=== PATIENT | female | born 1950 | race American Indian/Alaskan Native ===

== ENCOUNTER 2021-05-04 18:22 | Observation (INO) | payer MEDICARE ==
[2021-05-04] MEDS ORDERED: ASPIRIN 325 MG TAB PO ONE ×2 (19:16→23:25)
--- NOTE | 2021-05-04 19:21 | Event Note ---
ED Screening Note ED Screening Note: Patient is a 70-year-old female presents emergency room with complaints of right-sided chest pain that began 2 days ago She describes the pain as a aching She denies any radiation of the pain She has associated nausea She denies any fever, vomiting, cough, shortness of breath, leg swelling, diaphoresis She is a former smoker and quit 10 years ago Past medical history of hypertension, hyperlipidemia, diabetes, arthritis, asthma, COPD No allergies to medicines She states that she may also possibly have a spider bite to the left foot This initial assessment/diagnostic orders/clinical plan/treatment(s) is/are subject to change based on patients health status, clinical progression and re- assessment by fellow clinical providers in the ED. Further treatment and workup at subsequent clinical providers discretion. Patient/guardian urged not to elope from the ED as their condition may be serious if not clinically assessed and managed. Initial orders include: Chest pain protocol ordered by triage
[2021-05-04 19:42] LABS: Basophils # (Auto) 0.1 K/mm3 (0.0-0.1); Basophils % (Auto) 0.8 % (0.0-1.8); Eosinophils # (Auto) 0.3 K/mm3 (0.0-0.4); Eosinophils % (Auto) 4.1 % (0.0-4.3); Hematocrit 43.3 % (30.3-42.9); Hemoglobin 14.8 gm/dl (10.1-14.3); Lymphocytes # (Auto) 3.4 K/mm3 (1.2-5.4); Lymphocytes % (Auto) 43.1 % (13.4-35.0); Mean Corpuscular HGB Conc 34 % (30-34); Mean Corpuscular Volume 90 fl (79-97); Monocytes # (Auto) 0.6 K/mm3 (0.0-0.8); Monocytes % (Auto) 8.2 % (0.0-7.3); Platelet Count 183 K/mm3 (140-440); Red Blood Count 4.82 M/mm3 (3.65-5.03); Red Cell Distribution Width 14.9 % (13.2-15.2)
--- NOTE | 2021-05-04 19:54 | XRay Report ---
XR chest routine 2V INDICATION / CLINICAL INFORMATION: chest pain. COMPARISON: None available. FINDINGS: SUPPORT DEVICES: None. HEART /PULMONARY VASCULATURE: No significant abnormality. LUNGS / PLEURA: No significant pulmonary or pleural abnormality. No pneumothorax. ADDITIONAL FINDINGS: No significant additional findings. IMPRESSION: 1. No acute findings. Signer Name: Terrance Chen MD Signed: 05/04/2021 7:50 PM Workstation Name: [id number]
[2021-05-04 20:05] LABS: Alanine Aminotransferase 30 units/L (7-56); Albumin 4.6 g/dL (3.9-5); BUN/Creatinine Ratio 10; Blood Urea Nitrogen 8 mg/dL (7-17); Calcium 10.2 mg/dL (8.4-10.2); Hemolysis Index 14
[2021-05-04] MEDS ORDERED: ONDANSETRON 4 MG/2 ML INJ IV ONE (21:11)
[2021-05-04] MEDS ORDERED: MORPHINE 4 MG/1 ML INJ IV ONE (21:11)
[2021-05-04] MEDS ORDERED: SULFAMETHOXAZOLE/TRIMETHOPRIM 800/160MG DS TAB PO ONE (21:12)
--- NOTE | 2021-05-04 21:16 | Emergency Department Report ---
ED Chest Pain HPI - General Chief Complaint: Chest Pain Stated Complaint: CHEST PAIN, INSECT BITE LEFT FOOT Time Seen by Provider: 05/04/21 19:19 Source: patient Mode of arrival: Ambulatory Limitations: No Limitations - History of Present Illness Initial Comments: This is a 70-year-old -[place] female presents to the emergency department with 2 complaints. First, the patient has been having some midsternal to right-sided chest pain that has been going on intermittently since last night. No known aggravating or alleviating factors. Currently her pain is a sharp pain and is 6 out of 10 in intensity. It is associated with some nausea without vomiting and occasionally some mild shortness of breath. Secondly, the patient complains of an infection or possible insect bite to the left foot. She did not see anything bite or sting her but she has been having the symptoms for 3 days and this also worsened since yesterday. The pain is towards the first and second toe of the left foot and radiates down to the ball of her foot and underneath her toes. She has a past medical history of asthma, COPD not O2 dependent, hypertension, high cholesterol, diet-controlled diabetes, GERD. She is a former smoker but quit 10 years ago. Denies any illicit drug use. No recent travel or sick contacts at home. Her primary care physician is a Dr. Hwang, but she does not have a park attendant. - Related Data Home Medications Medication Instructions Recorded Confirmed Last Taken Fluticasone Propionate [Flovent 2 inhalation INHALATION DAILY 06/06/14 12/07/15 11/24/15 110 MCG/PUFF HFA] Aspirin EC [Ecotrin] 325 mg PO DAILY 11/20/15 12/14/15 1 Week Ago ~12/07/15 325 mg Loratadine (Nf) [Claritin (Nf)] 10 mg PO DAILY 11/30/15 12/07/15 Unknown Allergies Allergy/AdvReac Type Severity Reaction Status Date / Time No Known Allergies Allergy Verified 11/22/15 10:15 Heart Score - HEART Score History: Slightly suspicious EKG: Non-specific Age: > 65 Risk factors: > 3 risk factors or hx of atherosclerotic disease Troponin: < normal limit HEART Score: 5 - EKG Read Time Time EKG Completed: 19:20 EKG Read Time: 19:27 - Critical Actions Critical Actions: 4-6 pts:12-16.6% risk of adverse cardiac event. Should be admitted ED Review of Systems ROS: Stated complaint: CHEST PAIN, INSECT BITE LEFT FOOT Other details as noted in HPI Comment: All other systems reviewed and negative Constitutional: denies: chills, fever Eyes: denies: eye pain, vision change ENT: denies: ear pain, throat pain Respiratory: cough, shortness of breath (Intermittent) Cardiovascular: chest pain. denies: palpitations, edema Gastrointestinal: denies: abdominal pain, vomiting Genitourinary: denies: dysuria, discharge Musculoskeletal: arthralgia (Left foot). denies: back pain Skin: change in color (Erythema and warmth to the left foot). denies: rash Neurological: denies: numbness, paresthesias ED Past Medical Hx - Past Medical History Previous Medical History?: Yes Hx Hypertension: Yes Hx Diabetes: Yes (DIET CONTROLLED) Hx GERD: Yes Hx Liver Disease: Yes (hemangioma of the liver) Hx Arthritis: Yes Hx Asthma: Yes Hx COPD: Yes Hx HIV: No Additional medical history: chronic back painHIGH CHOLESTEROL - Surgical History Past Surgical History?: Yes Additional Surgical History: right thumb surgery, RIGHT FOOT SURGERY - Social History Smoking Status: Former Smoker Substance Use Type: None - Medications Home Medications: Home Medications Medication Instructions Recorded Confirmed Last Taken Type Fluticasone Propionate [Flovent 2 inhalation INHALATION DAILY 06/06/14 12/07/15 11/24/15 History 110 MCG/PUFF HFA] Aspirin EC [Ecotrin] 325 mg PO DAILY 11/20/15 12/14/15 1 Week Ago History ~12/07/15 325 mg Loratadine (Nf) [Claritin (Nf)] 10 mg PO DAILY 11/30/15 12/07/15 Unknown History ED Physical Exam - General Limitations: No Limitations - Other Other exam information: GENERAL: The patient is well-developed well-nourished. HENT: Normocephalic. Atraumatic. Patient has moist mucous membranes. EYES: Extraocular motions are intact. NECK: Supple. Trachea is midline. CHEST/LUNGS: Clear to auscultation. There is no respiratory distress noted. Chest pain is not reproducible to palpation of the chest wall. HEART/CARDIOVASCULAR: Regular. There is no tachycardia. There is no murmur. ABDOMEN: Abdomen is soft, nontender. Patient has normal bowel sounds. SKIN: Skin is warm and dry. There is some erythema and warmth to the distal dorsal left foot, between toes 1 and 2. No fluctuance, lesions. NEURO: The patient is awake, alert, and oriented. The patient is cooperative. The patient has no focal neurologic deficits. Normal speech. MUSCULOSKELETAL: There is some tenderness to palpation of the distal dorsal left foot, about toes 1 and 2, where the patient has a cellulitis. +2/4 dorsalis pedis pulse to the affected left foot. No limitation to range of motion to any extremities. ED Course Vital Signs 05/04/21 19:13 Temperature 98.6 F Pulse Rate 109 H Respiratory 20 Rate Blood Pressure 124/81 O2 Sat by Pulse 97 Oximetry LETICIA score - Leticia Score Age > 65: (1) Yes Aspirin use within the Past 7 Days: (0) No 3 or more CAD Risk Factors: (1) Yes 2 or more Angina events in past 24 hrs: (1) Yes Known CAD with more than 50% Stenosis: (0) No Elevated Cardiac Markers: (0) No ST Deviation Greater than 0.5mm: (0) No LETICIA Score: 3 ED Medical Decision Making - Lab Data Result diagrams: 05/04/21 19:25 05/04/21 19:25 Lab Results 05/04/21 05/04/21 Range/Units 19:25 19:25 WBC 7.8 (4.5-11.0) K/mm3 RBC 4.82 (3.65-5.03) M/mm3 Hgb 14.8 H (10.1-14.3) gm/dl Hct 43.3 H (30.3-42.9) % MCV 90 (79-97) fl MCH 31 (28-32) pg MCHC 34 (30-34) % RDW 14.9 (13.2-15.2) % Plt Count 183 (140-440) K/mm3 Lymph % (Auto) 43.1 H (13.4-35.0) % [place] % (Auto) 8.2 H (0.0-7.3) % Eos % (Auto) 4.1 (0.0-4.3) % Baso % (Auto) 0.8 (0.0-1.8) % Lymph # (Auto) 3.4 (1.2-5.4) K/mm3 [place] # (Auto) 0.6 (0.0-0.8) K/mm3 Eos # (Auto) 0.3 (0.0-0.4) K/mm3 Baso # (Auto) 0.1 (0.0-0.1) K/mm3 Seg Neutrophils % 43.8 (40.0-70.0) % Seg Neutrophils # 3.4 (1.8-7.7) K/mm3 Sodium 141 (137-145) mmol/L Potassium 3.5 L (3.6-5.0) mmol/L Chloride 103.7 (98-107) mmol/L Carbon Dioxide 26 (22-30) mmol/L Anion Gap 15 mmol/L BUN 8 (7-17) mg/dL Creatinine 0.8 (0.6-1.2) mg/dL Estimated GFR > 60 ml/min BUN/Creatinine Ratio 10 % Glucose 85 (65-100) mg/dL Calcium 10.2 (8.4-10.2) mg/dL Total Bilirubin 0.20 (0.1-1.2) mg/dL AST 21 (5-40) units/L ALT 30 (7-56) units/L Alkaline Phosphatase 97 (35-129) units/L Troponin T < 0.010 (0.00-0.029) ng/mL Total Protein 7.9 (6.3-8.2) g/dL Albumin 4.6 (3.9-5) g/dL Albumin/Globulin Ratio 1.4 % - EKG Data -: EKG Interpreted by Me EKG shows normal: sinus rhythm, axis (Left axis deviation), intervals, QRS complexes (Q waves to the anteroseptal leads, LVH, left anterior fascicular block), ST-T waves Rate: tachycardia (101 bpm) - EKG Data When compared to previous EKG there are: no significant change Interpretation: unchanged when compared t (11/20/15) - Radiology Data Radiology results: image reviewed interpreted by me: Chest x-ray does not show any acute process. There are no pleural effusions, obvious pneumonia and there is no pneumothorax. - Medical Decision Making This patient presents with midsternal to right-sided chest pain since last night. EKG does not have any morphology consistent ST elevation myocardial infarction. Chest x-ray does not show any pneumonia, pleural effusions, pneumothorax, widened mediastinum, or any other acute process. Labs thus far have been mostly unremarkable including CBC, metabolic panel and a negative troponin. However, the patient is a moderate heart and LETICIA score given her risk factors including age, hypertension, high cholesterol, diabetes. It appears that it has been many years since the patient last had a stress test or full cardiac work-up. For this reason she will be admitted to the hospital for further evaluation and treatment was accepted for admission by the hospitalist. Patient also has a mild left foot cellulitis for which she has been started on Bactrim. No leukocytosis. Patient is afebrile. Critical Care Time: No Critical care attestation.: If time is entered above; I have spent that time in minutes in the direct care of this critically ill patient, excluding procedure time. ED Disposition Clinical Impression: Cellulitis of left foot, Acute chest pain, Chest pain, rule out acute myocardial infarction Disposition: OP ADMIT IP TO THIS HOSP Is pt being admited?: Yes Condition: Fair Instructions: Chest Pain (ED) Time of Disposition: 22:06
[2021-05-04] MEDS ORDERED: traMADol 50 MG TAB PO PRN (22:16)
[2021-05-04] MEDS ORDERED: DEXTROSE 50% IN WATER (25GM) 50 ML SYRINGE IV PRN (22:16)
[2021-05-04] MEDS ORDERED: ONDANSETRON 4 MG/2 ML INJ IV PRN (22:16)
[2021-05-04] MEDS ORDERED: ALBUTEROL 2.5 MG/3 ML NEBU IH PRN (22:16)
[2021-05-04] MEDS ORDERED: ACETAMINOPHEN 325 MG TAB PO PRN (22:16)
[2021-05-04] MEDS ORDERED: NITROGLYCERIN 0.4 MG TAB SUBL SL PRN (22:16)
[2021-05-04] MEDS ORDERED: MORPHINE 4 MG/1 ML INJ IV PRN (22:16)
[2021-05-04] MEDS ORDERED: POTASSIUM CHLORIDE ER 20 MEQ TAB PO ONE (22:44)
--- NOTE | 2021-05-04 22:51 | History and Physical Report ---
History of Present Illness Date of examination: 05/04/21 Date of admission: 05/04/2021 Chief complaint: CP, left great and second toe redness and pain History of present illness: 70 y.o -Citizen Of [place] female who is a former smoker (quit 10 years ago) with history of hypertension, COPD/asthma, anxiety, GERD, DM 2, HLD, and chronic back pain who complains of chest pain and redness and warmth to left great and second toe. Patient complains of right-sided/midsternal 6/10 sharp chest pain x1 day. The pain was unprovoked, on relieved with rest. Endorses mild dyspnea with exertion and nausea, but denies emesis, and diaphoresis. Additionally patient complains of left foot pain. Patient thinks that she was bit or stung by an insect approximately 3 days ago and now has an area of erythema and warmth to her left great and second toe. She rates her foot pain as 5/10 with radiation down to the ball of her foot. She denies taking anything for relief. Denies recent tobacco use, fever, headache, sore throat, cough, sputum production, burning in back of throat, heartburn, illicit drug use, abdominal pain, melena, constipation, diarrhea, recent fall/injury, recent sick contacts. Review of medical record shows patient was last seen at [facility] in 2015 for routine colonoscopy. Past History Past Medical History: COPD (/Asthma), diabetes, GERD, hypertension, hyperlipidemia, other (anxiety, former smoker (quit 10yrs ago), hemangioma of liver, chronic back pain) Past Surgical History: Other (right thumb surgery, right foot surgery ) Social history: single, lives with family (grandchildren lives with ), full code. denies: smoking, alcohol abuse, IV drug use Family history: hypertension Medications and Allergies Allergies Allergy/AdvReac Type Severity Reaction Status Date / Time No Known Allergies Allergy Verified 11/22/15 10:15 Home Medications Medication Instructions Recorded Confirmed Last Taken Type Fluticasone Propionate [Flovent 2 inhalation INHALATION DAILY 06/06/14 12/07/15 11/24/15 History 110 MCG/PUFF HFA] Aspirin EC [Ecotrin] 325 mg PO DAILY 11/20/15 12/14/15 1 Week Ago History ~12/07/15 325 mg Loratadine (Nf) [Claritin (Nf)] 10 mg PO DAILY 11/30/15 12/07/15 Unknown History Active Meds: Active Medications Acetaminophen (Acetaminophen 325 Mg Tab) 650 mg PO Q4H PRN PRN Reason: Pain MILD(1-3)/Fever >100.5/FISHER Albuterol (Albuterol 2.5 Mg/3 Ml Nebu) 2.5 mg IH Q3HRT PRN PRN Reason: Shortness Of Breath Aspirin (Aspirin Ec 325 Mg Tab) 325 mg PO QDAY [facility] Atorvastatin Calcium (Atorvastatin 40 Mg Tab) 40 mg PO QHS [facility] Bisacodyl (Bisacodyl 10 Mg Rect Supp) 10 mg MO QDAY PRN PRN Reason: Constipation unrelieved by MOM Dextrose (Dextrose 50% In Water (25gm) 50 Ml Syringe) 50 ml IV Q30MIN PRN; Protocol PRN Reason: Hypoglycemia Docusate Sodium (Docusate Sodium 100 Mg Cap) 100 mg PO BID [facility] Heparin Sodium (Porcine) (Heparin 5,000 Unit/1 Ml Vial) 5,000 unit SUB-Q Q12HR [facility] Ampicillin Sodium/Sulbactam Sodium (Unasyn/Ns 1.5 Gm/50 Ml) 1.5 gm in 50 mls @ 100 mls/hr IV Q8H [facility]; Protocol Insulin Human Lispro (Insulin Lispro 100 Unit/Ml) 0 unit SUB-Q Q6HR [facility]; Protocol Morphine Sulfate (Morphine 4 Mg/1 Ml Inj) 2 mg IV Q5MIN PRN PRN Reason: Chest Pain Nitroglycerin (Nitroglycerin 0.4 Mg Tab Subl) 0.4 mg SL Q5M PRN PRN Reason: Chest Pain Ondansetron HCl (Ondansetron 4 Mg/2 Ml Inj) 4 mg IV Q6H PRN PRN Reason: Nausea And Vomiting Pantoprazole Sodium (Pantoprazole 40 Mg Inj) 40 mg IV BID [facility] Potassium Chloride (Potassium Chloride Er 20 Meq Tab) 20 meq PO ONCE ONE Stop: 05/04/21 22:45 Sodium Chloride (Sodium Chloride 0.9% 10 Ml Flush Syringe) 10 ml IV BID [facility] Sodium Chloride (Sodium Chloride 0.9% 10 Ml Flush Syringe) 10 ml IV PRN PRN PRN Reason: LINE FLUSH Tramadol HCl (Tramadol 50 Mg Tab) 50 mg PO Q6H PRN PRN Reason: Pain, Moderate (4-6) Review of Systems All systems: negative (As noted in HPI) Exam - Physical Exam Narrative exam: Physical exam General appearance: Present: No acute distress, alert and oriented 3, well- developed, older adult female - EENT Eyes: Present: PERRL, EOM intact ENT: hearing intact, normal dentition - Neck Neck: Present: supple, normal ROM - Respiratory Respiratory effort: Non-labored Respiratory: Clear throughout - Cardiovascular Heart rate: 101 (bpm) Rhythm: Sinus tachycardia Heart Sounds: Present: S1 & S2. Absent: rub, click - Extremities Extremities: no ischemia, pulses intact, left great and second toe has quarter sized area of erythema and warmth with slight tenderness to touch - Peripheral Assessment Peripheral Pulses: within normal limits - Abdominal General gastrointestinal: soft, non-tender, normal bowel sounds - Integumentary Integumentary: Present: warm, dry - Musculoskeletal Musculoskeletal: Able to move all extremities -Neurological Neurological: CN II-XII intact - Psychiatric Psychiatric: cooperative - Constitutional Vitals: Temp Pulse Resp BP Pulse Ox 98.6 F 109 H 20 124/81 97 05/04/21 19:13 05/04/21 19:13 05/04/21 19:13 05/04/21 19:13 05/04/21 19:13 HEART Score - HEART Score EKG: Non-specific Age: > 65 Risk factors: > 3 risk factors or hx of atherosclerotic disease Troponin: Troponin T < 0.010 ng/mL (0.00-0.029) 05/04/21 19:25 Troponin: < normal limit - Critical Actions Critical Actions: 4-6 pts:12-16.6% risk of adverse cardiac event. Should be admitted Results - Labs CBC & Chem 7: 05/04/21 19:25 05/04/21 19:25 Labs: Laboratory Last Values WBC 7.8 K/mm3 (4.5-11.0) 05/04/21 19:25 RBC 4.82 M/mm3 (3.65-5.03) 05/04/21 19:25 Hgb 14.8 gm/dl (10.1-14.3) H 05/04/21 19:25 Hct 43.3 % (30.3-42.9) H 05/04/21 19:25 MCV 90 fl (79-97) 05/04/21 19:25 MCH 31 pg (28-32) 05/04/21 19:25 MCHC 34 % (30-34) 05/04/21 19:25 RDW 14.9 % (13.2-15.2) 05/04/21 19:25 Plt Count 183 K/mm3 (140-440) 05/04/21 19:25 Lymph % (Auto) 43.1 % (13.4-35.0) H 05/04/21 19:25 [place] % (Auto) 8.2 % (0.0-7.3) H 05/04/21 19:25 Eos % (Auto) 4.1 % (0.0-4.3) 05/04/21 19:25 Baso % (Auto) 0.8 % (0.0-1.8) 05/04/21 19:25 Lymph # (Auto) 3.4 K/mm3 (1.2-5.4) 05/04/21 19:25 [place] # (Auto) 0.6 K/mm3 (0.0-0.8) 05/04/21 19:25 Eos # (Auto) 0.3 K/mm3 (0.0-0.4) 05/04/21 19:25 Baso # (Auto) 0.1 K/mm3 (0.0-0.1) 05/04/21 19:25 Seg Neutrophils % 43.8 % (40.0-70.0) 05/04/21 19:25 Seg Neutrophils # 3.4 K/mm3 (1.8-7.7) 05/04/21 19:25 Sodium 141 mmol/L (137-145) 05/04/21 19:25 Potassium 3.5 mmol/L (3.6-5.0) L 05/04/21 19:25 Chloride 103.7 mmol/L (98-107) 05/04/21 19:25 Carbon Dioxide 26 mmol/L (22-30) 05/04/21 19:25 Anion Gap 15 mmol/L 05/04/21 19:25 BUN 8 mg/dL (7-17) 05/04/21 19:25 Creatinine 0.8 mg/dL (0.6-1.2) 05/04/21 19:25 Estimated GFR > 60 ml/min 05/04/21 19:25 BUN/Creatinine Ratio 10 % 05/04/21 19:25 Glucose 85 mg/dL (65-100) 05/04/21 19:25 Calcium 10.2 mg/dL (8.4-10.2) 05/04/21 19:25 Total Bilirubin 0.20 mg/dL (0.1-1.2) 05/04/21 19:25 AST 21 units/L (5-40) 05/04/21:25 ALT 30 units/L (7-56) 05/04/21 19:25 Alkaline Phosphatase 97 units/L (35-129) 05/04/21 19:25 Troponin T < 0.010 ng/mL (0.00-0.029) 05/04/21:25 Total Protein 7.9 g/dL (6.3-8.2) 05/04/21 19:25 Albumin 4.6 g/dL (3.9-5) 05/04/21:25 Albumin/Globulin Ratio 1.4 % 05/04/21 19:25 - Imaging and Cardiology Chest x-ray: report reviewed (IMPRESSION: 1. No acute findings. ), image reviewed, other Assessment and Plan Assessment and plan: Acute Chest Pain -Complains of right-sided sharp 6/10 chest pain -?? GERD exacerbation -Initiate chest pain protocol -Continuous telemetry monitoring -Continue supportive care -Pain mgmt -Troponin negative x1 , will continue to trend -EKG unrevealing for acute ischemic abnormalities -Echo and Lexiscan's pending -on ASA and statin Left foot cellulitis -Left great and second toe quarter size area of erythema, warmth, slight tenderness to touch -Cultures pending -Monitor area -Monitor labs -Started on IV ABX Hypokalemia -Mild -Replace -Monitor electrolytes, and replace as needed HTN -Monitor BP -Resume home hypertensive meds once med rec has been updated Noninsulin-dependent diabetes mellitus -POC BG monitoring -SSI coverage prn -HgbA1C pending History HLD -On statin -Lipid panel pending History of tobacco use -Former smoker smoked 1/2 pack/day since age of 18, quit approximately 10 years ago History of COPD/asthma -Albuterol as needed History of GERD -Start on IV Protonix twice daily DVT PPX -On Heparin Advance Directives: No VTE prophylaxis?: Chemical, Mechanical Plan of care discussed with patient/family: Yes
[2021-05-04] MEDS: HYDROmorphone 1 MG/1 ML INJ IV PRN (23:10)
[2021-05-04 23:13] LABS: Chol/HDL Ratio 3.86 %
[2021-05-04] MEDS: PANTOPRAZOLE 40 MG INJ IV SCH (23:49)
[2021-05-04] MEDS: AMPICILLIN/SULBACTA 1.5GM/50ML 1.5 GM/50 ML BAG IV SCH (23:50)
[2021-05-05] MEDS: INSULIN LISPRO 100 UNIT/ML SUB-Q SCH ×4 (02:02→18:23)
[2021-05-05] MEDS: HYDROmorphone 1 MG/1 ML INJ IV PRN ×2 (02:42→22:29)
[2021-05-05 06:28] LABS: Basophils % (Auto) 0.5 % (0.0-1.8); Eosinophils # (Auto) 0.3 K/mm3 (0.0-0.4); Eosinophils % (Auto) 3.9 % (0.0-4.3); Hematocrit 38.7 % (30.3-42.9); Hemoglobin 12.9 gm/dl (10.1-14.3); Lymphocytes # (Auto) 3.3 K/mm3 (1.2-5.4); Mean Corpuscular HGB Conc 33 % (30-34); Mean Corpuscular Volume 91 fl (79-97); Monocytes # (Auto) 0.5 K/mm3 (0.0-0.8); Monocytes % (Auto) 7.7 % (0.0-7.3); Platelet Count 167 K/mm3 (140-440); Red Blood Count 4.26 M/mm3 (3.65-5.03)
[2021-05-05 06:48] LABS: Blood Urea Nitrogen 10 mg/dL (7-17); Calcium 9.7 mg/dL (8.4-10.2); Hemolysis Index 3
[2021-05-05 06:51] LABS: BUN/Creatinine Ratio 14
[2021-05-05] MEDS: SODIUM CHLORIDE 0.9% 1000 ML 1,000 ML IV SCH (06:52)
[2021-05-05] MEDS: AMPICILLIN/SULBACTA 1.5GM/50ML 1.5 GM/50 ML BAG IV SCH ×4 (07:00→23:35)
--- NOTE | 2021-05-05 10:10 | Consultation ---
History of Present Illness Consult date: 05/05/21 Requesting physician: EMILIANO MUELLER Consult reason: chest pain History of present illness: Patient is a 70-year-old who presented to the hospital with several nonspecific complaints. Primary complaint was pain in her foot. She subsequently also complained of some chest pain. Currently appears a little bit confused but reports she had no longer has any chest pain. She reports she is having headache and foot pain. She says her left foot has been hurting since she had an insect bite. Reports no fever chills or rigor. No recent travel or exposure to anyone with Covid. Her past medical history includes hypertension, COPD/asthma, anxiety, GERD, DM 2, HL. She has had a remote cath 2016 unfortunately she is unable to recount the findings. Past History Past Medical History: COPD (/Asthma), diabetes, GERD, hypertension, hyperlipidemia, other (anxiety, former smoker (quit 10yrs ago), hemangioma of liver, chronic back pain) Past Surgical History: Other (right thumb surgery, right foot surgery ) Social history: single, lives with family (grandchildren lives with ), full code. denies: smoking, alcohol abuse, IV drug use Family history: hypertension Medications and Allergies Allergies Allergy/AdvReac Type Severity Reaction Status Date / Time No Known Allergies Allergy Verified 11/22/15 10:15 Home Medications Medication Instructions Recorded Confirmed Last Taken Type Fluticasone Propionate [Flovent 2 inhalation INHALATION DAILY 06/06/14 05/05/21 11/24/15 History 110 MCG/PUFF HFA] Aspirin EC [Ecotrin] 325 mg PO DAILY 11/20/15 05/05/21 05/04/21 History Loratadine (Nf) [Claritin (Nf)] 10 mg PO DAILY 11/30/15 05/05/21 05/04/21 History Active Meds: Active Medications Acetaminophen (Acetaminophen 325 Mg Tab) 650 mg PO Q4H PRN PRN Reason: Pain MILD(1-3)/Fever >100.5/FISHER Albuterol (Albuterol 2.5 Mg/3 Ml Nebu) 2.5 mg IH Q3HRT PRN PRN Reason: Shortness Of Breath Aspirin (Aspirin Ec 325 Mg Tab) 325 mg PO QDAY CHARAN Atorvastatin Calcium (Atorvastatin 40 Mg Tab) 40 mg PO QHS CHARAN Bisacodyl (Bisacodyl 10 Mg Rect Supp) 10 mg MD QDAY PRN PRN Reason: Constipation unrelieved by MOM Dextrose (Dextrose 50% In Water (25gm) 50 Ml Syringe) 50 ml IV Q30MIN PRN; Protocol PRN Reason: Hypoglycemia Docusate Sodium (Docusate Sodium 100 Mg Cap) 100 mg PO BID CHARAN Heparin Sodium (Porcine) (Heparin 5,000 Unit/1 Ml Vial) 5,000 unit SUB-Q Q12HR CHARAN Hydromorphone HCl (Hydromorphone 1 Mg/1 Ml Inj) 0.5 mg IV Q3H PRN PRN Reason: Pain , Severe (7-10) Last Admin: 05/05/21 02:42 Dose: 0.5 mg Documented by: Ampicillin Sodium/Sulbactam Sodium (Unasyn/Ns 1.5 Gm/50 Ml) 1.5 gm in 50 mls @ 100 mls/hr IV Q8H [facility]; Protocol Last Admin: 05/04/21 23:50 Dose: 100 mls/hr Documented by: Sodium Chloride (Nacl 0.9% 1000 Ml) 1,000 mls @ 100 mls/hr IV DIRECT [facility] Last Admin: 05/05/21 06:52 Dose: 100 mls/hr Documented by: Insulin Human Lispro (Insulin Lispro 100 Unit/Ml) 0 unit SUB-Q Q6HR [facility]; Protocol Last Admin: 05/05/21 06:50 Dose: Not Given Documented by: Morphine Sulfate (Morphine 4 Mg/1 Ml Inj) 2 mg IV Q5MIN PRN PRN Reason: Chest Pain UNRELIEVED BY NTG Nitroglycerin (Nitroglycerin 0.4 Mg Tab Subl) 0.4 mg SL Q5M PRN PRN Reason: Chest Pain Ondansetron HCl (Ondansetron 4 Mg/2 Ml Inj) 4 mg IV Q6H PRN PRN Reason: Nausea And Vomiting Pantoprazole Sodium (Pantoprazole 40 Mg Inj) 40 mg IV BID [facility] Last Admin: 05/04/21 23:49 Dose: 40 mg Documented by: Sodium Chloride (Sodium Chloride 0.9% 10 Ml Flush Syringe) 10 ml IV BID CHARAN Sodium Chloride (Sodium Chloride 0.9% 10 Ml Flush Syringe) 10 ml IV PRN PRN PRN Reason: LINE FLUSH Tramadol HCl (Tramadol 50 Mg Tab) 50 mg PO Q6H PRN PRN Reason: Pain, Moderate (4-6) Review of Systems All systems: negative (As mentioned in the H&P) Physical Examination Vital Signs Temp Pulse Resp BP Pulse Ox 98.6 F 109 H 20 124/81 97 05/04/21 19:13 05/04/21 19:13 05/04/21 19:13 05/04/21 19:13 05/04/21 19:13 HEENT: Positive: Normocephaly Neck: Positive: trachea midline Cardiac: Positive: Reg Rate and Rhythm Lungs: Positive: clear to auscultation Neuro: Positive: Grossly Intact Abdomen: Positive: Unremarkable Extremities: Present: normal (She has bilateral Achilles 2+ dorsalis pedis and posterior tibial pulses.) Results 05/05/21 05:48 05/05/21 05:48 Cardiac Enzymes 05/04/21 Range/Units 19:25 AST 21 (5-40) units/L Lipids 05/04/21 Range/Units 22:39 Triglycerides 358 H (2-149) mg/dL Cholesterol 205 H (50-199) mg/dL HDL Cholesterol 53 (40-59) mg/dL Cholesterol/HDL Ratio 3.86 % CBC 05/04/21 05/05/21 Range/Units 19:25 05:48 WBC 7.8 7.1 (4.5-11.0) K/mm3 RBC 4.82 4.26 (3.65-5.03) M/mm3 Hgb 14.8 H 12.9 (10.1-14.3) gm/dl Hct 43.3 H 38.7 (30.3-42.9) % Plt Count 183 167 (140-440) K/mm3 Lymph # (Auto) 3.4 3.3 (1.2-5.4) K/mm3 [place] # (Auto) 0.6 0.5 (0.0-0.8) K/mm3 Eos # (Auto) 0.3 0.3 (0.0-0.4) K/mm3 Baso # (Auto) 0.1 0.0 (0.0-0.1) K/mm3 Comprehensive Metabolic Panel 05/04/21 05/05/21 Range/Units 19:25 05:48 Sodium 141 142 (137-145) mmol/L Potassium 3.5 L 4.0 (3.6-5.0) mmol/L Chloride 103.7 103.9 (98-107) mmol/L Carbon Dioxide 26 27 (22-30) mmol/L BUN 8 10 (7-17) mg/dL Creatinine 0.8 0.7 (0.6-1.2) mg/dL Glucose 85 84 (65-100) mg/dL Calcium 10.2 9.7 (8.4-10.2) mg/dL AST 21 (5-40) units/L ALT 30 (7-56) units/L Alkaline Phosphatase 97 (35-129) units/L Total Protein 7.9 (6.3-8.2) g/dL Albumin 4.6 (3.9-5) g/dL Assessment and Plan Impression 1. Atypical chest pain has since resolved 2. Hypertension fairly well controlled 3. Hyperlipidemia 4. COPD 5. Leg pain etiology unclear very good pulses distally 6. Mild confusion Plan 1. Obtain EKG 2. In view of the multiple risk factors consider stress test prior to DC 3. Rest per primary team
[2021-05-05] MEDS: PANTOPRAZOLE 40 MG INJ IV SCH ×2 (11:01→21:51)
[2021-05-05] MEDS: HEPARIN 5,000 UNIT/1 ML VIAL SUB-Q SCH ×2 (11:01→21:52)
[2021-05-05] MEDS: DOCUSATE SODIUM 100 MG CAP PO SCH ×2 (11:01→21:51)
[2021-05-05] MEDS: ASPIRIN EC 325 MG TAB PO SCH (11:01)
--- NOTE | 2021-05-05 12:09 | XRay Report ---
HISTORY:Swollen left big toe COMPARISON: None. TECHNIQUE: AP lateral and obliques views were obtained FINDINGS: Bones: No fracture or dislocation. Joint spaces: Maintained. Soft tissues: No significant abnormality. Additional findings: None. IMPRESSION: 1. No significant abnormality. Signer Name: Nba Alvarado MD Signed: 05/05/2021 12:04 PM Workstation Name: [id number]
--- NOTE | 2021-05-05 12:13 | Progress Note ---
Assessment and Plan Assessment and plan: Acute Chest Pain -Initiate chest pain protocol -Continuous telemetry monitoring -Continue supportive care -Pain mgmt -Troponin negative x1 , will continue to trend -EKG unrevealing for acute ischemic abnormalities -Echo and Lexiscan's pending -on ASA and statin Left foot cellulitis -Left great and second toe quarter size area of erythema, warmth, slight tenderness to touch -Cultures pending -Monitor area -Monitor labs -Started on IV ABX X ray foot done today, unremarkable Hypokalemia -Mild -Replace -Monitor electrolytes, and replace as needed HTN -Monitor BP -Resume home hypertensive meds once med rec has been updated Noninsulin-dependent diabetes mellitus -POC BG monitoring -SSI coverage prn History HLD -On statin - History of tobacco use -Former smoker smoked 1/2 pack/day since age of 18, quit approximately 10 years ago History of COPD/asthma -Albuterol as needed History of GERD -Start on IV Protonix twice daily DVT PPX -On Heparin 05/05/21 Patient presented with chest pain and pain, swelling and redness left 1st and 2nd toes. She was seen in ED and admitted. Started on Aspirin, iv Antibiotics. Patient evaluated by Cardiology. For stress test tomorrow. She had cardiac cath here in 2016. X ray foot unremarkable. Uric acid level done, pending. History Interval history: Chest pain Swollen,painful left big toe Hospitalist Physical - Physical exam Narrative exam: Gen: Not in acute distress, sitting up in chair HEENT: Normochephalic, atraumatic Neck:supple, No JVD Lungs:Clear to auscultation bilaterally, no rales, no wheeze Heart:S1 and S2 reg, no murmurs, rubs or gallop Abd: soft, non tender, non distended, normal bowel sounds Ext: Edema, erythema left 1st and 2nd toes, no cyanosis Neuro:Awake,alert,oriented X 3, moves all ext, no focal neurological signs - Constitutional Vitals: Temp Pulse Resp BP Pulse Ox 98.0 F 74 20 87/44 94 05/05/21 04:30 05/05/21 08:30 05/05/21 04:30 05/05/21 04:30 05/05/21 04:30 HEART Score - HEART Score EKG: Non-specific Age: > 65 Risk factors: > 3 risk factors or hx of atherosclerotic disease Troponin: Troponin T < 0.010 ng/mL (0.00-0.029) 05/05/21 01:07 Troponin: < normal limit - Critical Actions Critical Actions: 4-6 pts:12-16.6% risk of adverse cardiac event. Should be admitted Results - Labs CBC & Chem 7: 05/05/21 05:48 05/05/21 05:48 Labs: Laboratory Last Values WBC 7.1 K/mm3 (4.5-11.0) 05/05/21 05:48 RBC 4.26 M/mm3 (3.65-5.03) 05/05/21 05:48 Hgb 12.9 gm/dl (10.1-14.3) 05/05/21 05:48 Hct 38.7 % (30.3-42.9) 05/05/21 05:48 MCV 91 fl (79-97) 05/05/21 05:48 MCH 30 pg (28-32) 05/05/21 05:48 MCHC 33 % (30-34) 05/05/21 05:48 RDW 15.0 % (13.2-15.2) 05/05/21 05:48 Plt Count 167 K/mm3 (140-440) 05/05/21 05:48 Lymph % (Auto) 46.0 % (13.4-35.0) H 05/05/21 05:48 [place] % (Auto) 7.7 % (0.0-7.3) H 05/05/21 05:48 Eos % (Auto) 3.9 % (0.0-4.3) 05/05/21 05:48 Baso % (Auto) 0.5 % (0.0-1.8) 05/05/21 05:48 Lymph # (Auto) 3.3 K/mm3 (1.2-5.4) 05/05/21 05:48 [place] # (Auto) 0.5 K/mm3 (0.0-0.8) 05/05/21 05:48 Eos # (Auto) 0.3 K/mm3 (0.0-0.4) 05/05/21 05:48 Baso # (Auto) 0.0 K/mm3 (0.0-0.1) 05/05/21 05:48 Seg Neutrophils % 41.9 % (40.0-70.0) 05/05/21 05:48 Seg Neutrophils # 3.0 K/mm3 (1.8-7.7) 05/05/21 05:48 Sodium 142 mmol/L (137-145) 05/05/21 05:48 Potassium 4.0 mmol/L (3.6-5.0) 05/05/21 05:48 Chloride 103.9 mmol/L (98-107) 05/05/21 05:48 Carbon Dioxide 27 mmol/L (22-30) 05/05/21 05:48 Anion Gap 15 mmol/L 05/05/21 05:48 BUN 10 mg/dL (7-17) 05/05/21 05:48 Creatinine 0.7 mg/dL (0.6-1.2) 05/05/21 05:48 Estimated GFR > 60 ml/min 05/05/21 05:48 BUN/Creatinine Ratio 14 % 05/05/21 05:48 Glucose 84 mg/dL (65-100) 05/05/21 05:48 POC Glucose 86 mg/dL (70-105) 05/05/21 02:00 Hemoglobin A1c 5.8 % (4-6) 05/04/21 22:39 Calcium 9.7 mg/dL (8.4-10.2) 05/05/21 05:48 Total Bilirubin 0.20 mg/dL (0.1-1.2) 05/04/21 19:25 AST 21 units/L (5-40) 05/04/21 19:25 ALT 30 units/L (7-56) 05/04/21 19:25 Alkaline Phosphatase 97 units/L (35-129) 05/04/21 19:25 Troponin T < 0.010 ng/mL (0.00-0.029) 05/05/21 01:07 Total Protein 7.9 g/dL (6.3-8.2) 05/04/21 19:25 Albumin 4.6 g/dL (3.9-5) 05/04/21 19:25 Albumin/Globulin Ratio 1.4 % 05/04/21 19:25 Triglycerides 358 mg/dL (2-149) H 05/04/21 22:39 Cholesterol 205 mg/dL (50-199) H 05/04/21 22:39 LDL Cholesterol Direct 132 mg/dL (50-130) H 05/04/21 22:39 HDL Cholesterol 53 mg/dL (40-59) 05/04/21 22:39 Cholesterol/HDL Ratio 3.86 % 05/04/21 22:39 Microbiology: Microbiology 05/04/21 23:17 Peripheral/Venous Blood Culture - Preliminary Culture in Progress 05/04/21 22:39 Peripheral/Venous Blood Culture - Preliminary Culture in Progress Garcia/IV: Voiding Method Toilet Active Medications - Current Medications Current Medications: Generic Name Dose Route Start Last Admin Trade Name Freq PRN Reason Stop Dose Admin Acetaminophen 650 mg 05/04/21 22:16 Acetaminophen 325 Mg Tab PO Q4H PRN Pain MILD(1-3)/Fever >100.5/FISHER Albuterol 2.5 mg 05/04/21 22:16 Albuterol 2.5 Mg/3 Ml Nebu IH Q3HRT PRN Shortness Of Breath Aspirin 325 mg 05/05/21 10:00 05/05/21 11:01 Aspirin Ec 325 Mg Tab PO 325 mg QDAY CHARAN Administration Atorvastatin Calcium 40 mg 05/05/21 22:00 Atorvastatin 40 Mg Tab PO QHS CHARAN Bisacodyl 10 mg 05/04/21 22:16 Bisacodyl 10 Mg Rect Supp VT QDAY PRN Constipation unrelieved by MOM Dextrose 50 ml 05/04/21 22:16 Dextrose 50% In Water (25gm) 50 Ml Syringe IV Q30MIN PRN Hypoglycemia Protocol Docusate Sodium 100 mg 05/05/21 10:00 05/05/21 11:01 Docusate Sodium 100 Mg Cap PO 100 mg BID CHARAN Administration Heparin Sodium (Porcine) 5,000 unit 05/05/21 10:00 05/05/21 11:01 Heparin 5,000 Unit/1 Ml Vial SUB-Q 5,000 unit Q12HR CHARAN Administration Hydromorphone HCl 0.5 mg 05/04/21 22:56 05/05/21 02:42 Hydromorphone 1 Mg/1 Ml Inj IV 0.5 mg Q3H PRN Administration Pain , Severe (7-10) Ampicillin Sodium/Sulbactam Sodium 1.5 gm in 50 mls @ 100 mls/hr 05/04/21 23:00 05/04/21 23:50 Unasyn/Ns 1.5 Gm/50 Ml IV 100 mls/hr Q8H CHARAN Administration Protocol Sodium Chloride 1,000 mls @ 100 mls/hr 05/05/21 06:15 05/05/21 06:52 Nacl 0.9% 1000 Ml IV 100 mls/hr DIRECT CHARAN Administration Insulin Human Lispro 0 unit 05/05/21 00:00 05/05/21 06:50 Insulin Lispro 100 Unit/Ml SUB-Q Not Given Q6HR [facility] Protocol Morphine Sulfate 2 mg 05/04/21 22:16 Morphine 4 Mg/1 Ml Inj IV Q5MIN PRN Chest Pain UNRELIEVED BY NTG Nitroglycerin 0.4 mg 05/04/21 22:16 Nitroglycerin 0.4 Mg Tab Subl SL Q5M PRN Chest Pain Ondansetron HCl 4 mg 05/04/21 22:16 Ondansetron 4 Mg/2 Ml Inj IV Q6H PRN Nausea And Vomiting Pantoprazole Sodium 40 mg 05/04/21 23:00 05/05/21 11:01 Pantoprazole 40 Mg Inj IV 40 mg BID CHARAN Administration Sodium Chloride 10 ml 05/05/21 10:00 05/05/21 11:01 Sodium Chloride 0.9% 10 Ml Flush Syringe IV 10 ml BID CHARAN Administration Sodium Chloride 10 ml 05/04/21 22:16 Sodium Chloride 0.9% 10 Ml Flush Syringe IV PRN PRN LINE FLUSH Tramadol HCl 50 mg 05/04/21 22:16 05/05/21 11:01 Tramadol 50 Mg Tab PO 50 mg Q6H PRN Administration Pain, Moderate (4-6)
[2021-05-06] MEDS: INSULIN LISPRO 100 UNIT/ML SUB-Q SCH ×4 (00:31→18:02)
[2021-05-06] MEDS: HYDROmorphone 1 MG/1 ML INJ IV PRN (04:04)
[2021-05-06] MEDS: AMPICILLIN/SULBACTA 1.5GM/50ML 1.5 GM/50 ML BAG IV SCH ×3 (06:55→23:17)
[2021-05-06] MEDS ORDERED: REGADENOSON 0.4 MG/5 ML INJ IV ONE (07:03)
[2021-05-06] MEDS: ASPIRIN EC 325 MG TAB PO SCH (09:03)
[2021-05-06] MEDS: HEPARIN 5,000 UNIT/1 ML VIAL SUB-Q SCH ×2 (09:03→21:39)
[2021-05-06] MEDS: PANTOPRAZOLE 40 MG INJ IV SCH ×2 (09:03→21:39)
[2021-05-06] MEDS: DOCUSATE SODIUM 100 MG CAP PO SCH ×2 (09:03→21:39)
--- NOTE | 2021-05-06 09:35 | Progress Note ---
Assessment and Plan Assessment and plan: Acute Chest Pain -Initiate chest pain protocol -Continuous telemetry monitoring -EKG unrevealing for acute ischemic abnormalities -Echo and Lexiscan's pending -on ASA and statin Left foot cellulitis -Left great and second toe quarter size area of erythema, warmth, slight tenderness to touch -Cultures pending -Monitor area -Monitor labs -Cont. on IV ABX -X ray foot done, unremarkable Hypokalemia -Mild -Replaced -Monitor electrolytes, and replace as needed HTN -Monitor BP -Cont. home hypertensive meds Noninsulin-dependent diabetes mellitus -POC BG monitoring -SSI coverage prn History HLD -On statin History of tobacco use -Former smoker smoked 1/2 pack/day since age of 18, quit approximately 10 years ago History of COPD/asthma -Albuterol as needed History of GERD -Start on IV Protonix twice daily DVT PPX -On Heparin 05/05/21 Patient presented with chest pain and pain, swelling and redness left 1st and 2nd toes. She was seen in ED and admitted. Started on Aspirin, iv Antibiotics. Patient evaluated by Cardiology. For stress test tomorrow. She had cardiac cath here in 2015. X ray foot unremarkable. Uric acid level done, pending. 05/06/21. Await stress test results. Cont. abx for cellulitis. Anticipate d/c in am if stress negative and cellulitis cont. to improve. History Interval history: No new issues Hospitalist Physical - Constitutional Vitals: Temp Pulse Resp BP Pulse Ox 97.6 F 60 18 106/52 91 05/06/21 07:39 05/06/21 07:39 05/06/21 07:39 05/06/21 07:39 05/06/21 07:39 General appearance: Present: no acute distress, well-nourished - EENT Eyes: Present: PERRL, EOM intact ENT: hearing intact, clear oral mucosa, dentition normal - Neck Neck: Present: supple, normal ROM - Respiratory Respiratory effort: normal Respiratory: bilateral: CTA - Cardiovascular Rhythm: regular Heart Sounds: Present: S1 & S2. Absent: gallop, rub - Extremities Extremities: no ischemia, No edema, Full ROM - Abdominal General gastrointestinal: soft, non-tender, non-distended, normal bowel sounds - Integumentary Integumentary: Present: clear, warm, dry - Neurologic Neurologic: CNII-XII intact, moves all extremities HEART Score - HEART Score EKG: Non-specific Age: > 65 Risk factors: > 3 risk factors or hx of atherosclerotic disease Troponin: Troponin T < 0.010 ng/mL (0.00-0.029) 05/05/21 01:07 Troponin: < normal limit - Critical Actions Critical Actions: 4-6 pts:12-16.6% risk of adverse cardiac event. Should be admitted Results - Labs CBC & Chem 7: 05/05/21 05:48 05/05/21 05:48 Labs: Laboratory Last Values WBC 7.1 K/mm3 (4.5-11.0) 05/05/21 05:48 RBC 4.26 M/mm3 (3.65-5.03) 05/05/21 05:48 Hgb 12.9 gm/dl (10.1-14.3) 05/05/21 05:48 Hct 38.7 % (30.3-42.9) 05/05/21 05:48 MCV 91 fl (79-97) 05/05/21 05:48 MCH 30 pg (28-32) 05/05/21 05:48 MCHC 33 % (30-34) 05/05/21 05:48 RDW 15.0 % (13.2-15.2) 05/05/21 05:48 Plt Count 167 K/mm3 (140-440) 05/05/21 05:48 Lymph % (Auto) 46.0 % (13.4-35.0) H 05/05/21 05:48 [place] % (Auto) 7.7 % (0.0-7.3) H 05/05/21 05:48 Eos % (Auto) 3.9 % (0.0-4.3) 05/05/21 05:48 Baso % (Auto) 0.5 % (0.0-1.8) 05/05/21 05:48 Lymph # (Auto) 3.3 K/mm3 (1.2-5.4) 05/05/21 05:48 [place] # (Auto) 0.5 K/mm3 (0.0-0.8) 05/05/21 05:48 Eos # (Auto) 0.3 K/mm3 (0.0-0.4) 05/05/21 05:48 Baso # (Auto) 0.0 K/mm3 (0.0-0.1) 05/05/21 05:48 Seg Neutrophils % 41.9 % (40.0-70.0) 05/05/21 05:48 Seg Neutrophils # 3.0 K/mm3 (1.8-7.7) 05/05/21 05:48 Sodium 142 mmol/L (137-145) 05/05/21 05:48 Potassium 4.0 mmol/L (3.6-5.0) 05/05/21 05:48 Chloride 103.9 mmol/L (98-107) 05/05/21 05:48 Carbon Dioxide 27 mmol/L (22-30) 05/05/21 05:48 Anion Gap 15 mmol/L 05/05/21 05:48 BUN 10 mg/dL (7-17) 05/05/21 05:48 Creatinine 0.7 mg/dL (0.6-1.2) 05/05/21 05:48 Estimated GFR > 60 ml/min 05/05/21 05:48 BUN/Creatinine Ratio 14 % 05/05/21 05:48 Glucose 84 mg/dL (65-100) 05/05/21 05:48 POC Glucose 122 mg/dL (70-105) H 05/06/21 06:07 Hemoglobin A1c 5.8 % (4-6) 05/04/21 22:39 Uric Acid 5.7 mg/dL (3.5-7.6) 05/05/21 05:48 Calcium 9.7 mg/dL (8.4-10.2) 05/05/21 05:48 Total Bilirubin 0.20 mg/dL (0.1-1.2) 05/04/21 19:25 AST 21 units/L (5-40) 05/04/21 19:25 ALT 30 units/L (7-56) 05/04/21 19:25 Alkaline Phosphatase 97 units/L (35-129) 05/04/21 19:25 Troponin T < 0.010 ng/mL (0.00-0.029) 05/05/21 01:07 Total Protein 7.9 g/dL (6.3-8.2) 05/04/21 19:25 Albumin 4.6 g/dL (3.9-5) 05/04/21 19:25 Albumin/Globulin Ratio 1.4 % 05/04/21 19:25 Triglycerides 358 mg/dL (2-149) H 05/04/21 22:39 Cholesterol 205 mg/dL (50-199) H 05/04/21 22:39 LDL Cholesterol Direct 132 mg/dL (50-130) H 05/04/21 22:39 HDL Cholesterol 53 mg/dL (40-59) 05/04/21 22:39 Cholesterol/HDL Ratio 3.86 % 05/04/21 22:39 Nasal Screen MRSA (PCR) Negative (Negative) 05/05/21 04:30 Microbiology: Microbiology 05/04/21 23:17 Peripheral/Venous Blood Culture - Preliminary NO GROWTH AFTER 24 HOURS 05/04/21 22:39 Peripheral/Venous Blood Culture - Preliminary NO GROWTH AFTER 24 HOURS Garcia/IV: Voiding Method Toilet Active Medications - Current Medications Current Medications: Generic Name Dose Route Start Last Admin Trade Name Freq PRN Reason Stop Dose Admin Acetaminophen 650 mg 05/04/21 22:16 Acetaminophen 325 Mg Tab PO Q4H PRN Pain MILD(1-3)/Fever >100.5/FISHER Albuterol 2.5 mg 05/04/21 22:16 Albuterol 2.5 Mg/3 Ml Nebu IH Q3HRT PRN Shortness Of Breath Aspirin 325 mg 05/05/21 10:00 05/06/21 09:03 Aspirin Ec 325 Mg Tab PO 325 mg QDAY CHARAN Administration Atorvastatin Calcium 40 mg 05/05/21 22:00 05/05/21 21:51 Atorvastatin 40 Mg Tab PO 40 mg QHS CHARAN Administration Bisacodyl 10 mg 05/04/21 22:16 Bisacodyl 10 Mg Rect Supp VT QDAY PRN Constipation unrelieved by MOM Dextrose 50 ml 05/04/21 22:16 Dextrose 50% In Water (25gm) 50 Ml Syringe IV Q30MIN PRN Hypoglycemia Protocol Docusate Sodium 100 mg 05/05/21 10:00 05/06/21 09:03 Docusate Sodium 100 Mg Cap PO 100 mg BID CHARAN Administration Heparin Sodium (Porcine) 5,000 unit 05/05/21 10:00 05/06/21 09:03 Heparin 5,000 Unit/1 Ml Vial SUB-Q 5,000 unit Q12HR CHARAN Administration Hydromorphone HCl 0.5 mg 05/04/21 22:56 05/06/21 04:04 Hydromorphone 1 Mg/1 Ml Inj IV 0.5 mg Q3H PRN Administration Pain , Severe (7-10) Ampicillin Sodium/Sulbactam Sodium 1.5 gm in 50 mls @ 100 mls/hr 05/04/21 23:00 05/06/21 06:55 Unasyn/Ns 1.5 Gm/50 Ml IV 05/11/21 15:29 100 mls/hr Q8H CHARAN Administration Protocol Sodium Chloride 1,000 mls @ 100 mls/hr 05/05/21 06:15 05/05/21 06:52 Nacl 0.9% 1000 Ml IV 100 mls/hr DIRECT CHARAN Administration Insulin Human Lispro 0 unit 05/05/21 00:00 05/06/21 06:53 Insulin Lispro 100 Unit/Ml SUB-Q Not Given Q6HR [facility] Protocol Morphine Sulfate 2 mg 05/04/21 22:16 Morphine 4 Mg/1 Ml Inj IV Q5MIN PRN Chest Pain UNRELIEVED BY NTG Nitroglycerin 0.4 mg 05/04/21 22:16 Nitroglycerin 0.4 Mg Tab Subl SL Q5M PRN Chest Pain Ondansetron HCl 4 mg 05/04/21 22:16 Ondansetron 4 Mg/2 Ml Inj IV Q6H PRN Nausea And Vomiting Pantoprazole Sodium 40 mg 05/04/21 23:00 05/06/21 09:03 Pantoprazole 40 Mg Inj IV 05/06/21 23:59 40 mg BID CHARAN Administration Pantoprazole Sodium 40 mg 05/07/21 07:30 Pantoprazole 40 Mg Tab PO BIDAC CHARAN Sodium Chloride 10 ml 05/05/21 10:00 05/06/21 09:03 Sodium Chloride 0.9% 10 Ml Flush Syringe IV 10 ml BID CHARAN Administration Sodium Chloride 10 ml 05/04/21 22:16 Sodium Chloride 0.9% 10 Ml Flush Syringe IV PRN PRN LINE FLUSH Tramadol HCl 50 mg 05/04/21 22:16 05/05/21 11:01 Tramadol 50 Mg Tab PO 50 mg Q6H PRN Administration Pain, Moderate (4-6)
--- NOTE | 2021-05-06 10:56 | Progress Note ---
Assessment and Plan - Patient Problems (1) Atypical chest pain Current Visit: Yes Status: Acute Plan to address problem: Cardiology consultation for atypical chest pain. Patient serial ECGs were negative, troponin levels negative x3. A previous cardiac catheterization 5 years ago demonstrated no significant coronary artery disease and left ventricular ejection fraction 50 to 55%. On this presentation, echocardiogram showed ejection fraction 55%. She has co mpleted a Lexiscan thallium stress test today, the results are pending. Subjective Date of service: 05/06/21 Interval history: Patient is comfortable, no cardiac complaints. No further chest pain. EKG is normal sinus rhythm with early repolarization changes, no acute ischemia or infarction. Serial troponin levels x3 were normal. She underwent a Lexiscan thallium stress test today, results are pending. Objective Vital Signs Temp Pulse Pulse Pulse Resp BP Pulse Ox 05/06/21 10:28 126/71 05/06/21 10:27 135/75 05/06/21 10:26 113/66 05/06/21 10:25 135/69 05/06/21 10:24 117/70 05/06/21 09:26 124/69 05/06/21 07:39 97.6 F 60 18 106/52 91 05/06/21 03:41 98.0 F 76 18 110/45 88 05/06/21 03:00 76 05/05/21 23:18 98.0 F 71 20 108/70 95 05/05/21 20:21 85 85 18 94 05/05/21 19:15 97.6 F 85 18 121/62 94 05/05/21 19:00 79 05/05/21 15:33 98.9 F 83 18 100/62 93 05/05/21 11:53 97.7 F 74 20 119/70 93 - Physical Examination General: Appears Well, No Apparent Distress HEENT: Positive: Normocephaly Neck: Positive: trachea midline Cardiac: Positive: Reg Rate and Rhythm Lungs: Positive: clear to auscultation Neuro: Positive: Grossly Intact Abdomen: Positive: Unremarkable Skin: Positive: Clear Extremities: Absent: edema
--- NOTE | 2021-05-06 11:34 | Nuclear Medicine Report ---
APPROVED REPORT Exam: Nuclear Stress Test Indication: Chest pain Patient Location: [address] [place] [address] Room #: 490 Ht: 5 ft 0 in Wt: 167 lbs BSA: 1.73 m2 HR: 65 bpmBP: 124/69 mmHgBMI: 32.61 Rhythm: SINUS RHYTHM Stress Test Details Stress Test: Pharmacologic stress testing performed using 0.4 mg of regadenoson per 5 mL given IV over 10 seconds. Reason for pharmacologic stress test: physical limitation. HR Resting HR: 65 bpm Max HR Achieved: 104 bpm Max Heart Rate (APMHR): 152 bpm Target HR (85% APMHR): 129 bpm % of APMHR: 68 Recovery HR: 82 bpm BP Resting BP: 124/69 mmHg Max BP: 135/75 mmHg ECG Resting ECG: Sinus Rhythm Stress ECG: Sinus Rhythm ST Change: None Arrhythmia: None Recovery ECG: Sinus Rhythm Recovery ST Change: None Recovery Arrhythmia: None Clinical Reason for Termination: Completed protocol Stress ECG Conclusion No chest pain and no ST abnormalities with pharmacologic stress testing, myocardial perfusion images are pending for final test interpretation. NM EXAM: Myocardial Perfusion REST/STRESS Imaging Protocol: Rest Tc-99m/Stress Tc-99m 1 day Resting Data Rest SPECT myocardial perfusion imaging was performed in supine position 45 minutes following the intravenous injection of 10 mCi of Tc-99m Myoview. Time of rest injection: 0700 Pharmacologic Stress Pharmacologic stress test was performed by injecting Regadenoson 0.4 mg IV push followed by the intravenous injection of 28 mCi of Tc-99m Myoview. Time of stress injection: 1024 Gated Stress SPECT was performed 30 minutes after stress injection. The images were gated to evaluate regional wall motion and calculate left ventricular ejection fraction. Study Data TID = 1.23. Perfusion Nuclear Conclusion ECG Findings: negative for ischemia Clinical Findings: negative for ischemia Left Ventricular Function: normal Risk Study: low Normal rest and stress images, with mild apical thinning noted. Normal left ventricular systolic function, ejection fraction 61%. Negative study. Conclusion No chest pain and no ST abnormalities with pharmacologic stress testing, myocardial perfusion images are pending for final test interpretation.
[2021-05-06] MEDS: SODIUM CHLORIDE 0.9% 1000 ML 1,000 ML IV SCH (18:02)
[2021-05-07] MEDS: INSULIN LISPRO 100 UNIT/ML SUB-Q SCH ×3 (00:59→12:00)
[2021-05-07] MEDS: AMPICILLIN/SULBACTA 1.5GM/50ML 1.5 GM/50 ML BAG IV SCH ×2 (06:13→15:02)
[2021-05-07] MEDS ORDERED: PANTOPRAZOLE 40 MG TAB PO SCH (07:30)
[2021-05-07] MEDS: ASPIRIN EC 325 MG TAB PO SCH (09:03)
[2021-05-07] MEDS: DOCUSATE SODIUM 100 MG CAP PO SCH (09:04)
[2021-05-07] MEDS: HEPARIN 5,000 UNIT/1 ML VIAL SUB-Q SCH (09:04)
[2021-05-07 09:15] VITALS: BP 122/66
--- NOTE | 2021-05-07 09:28 | Discharge Summary ---
Providers - Providers Date of Admission: 05/05/21 00:51 Date of discharge: 05/07/21 Attending physician: JULIAN MARTINEZ 05/04/21 Consult to Cardiac Rehabilitation [CONS] Routine Reason For Exam: Phase I 05/05/21 07:34 Consult to Physician [CONS] Routine Comment: Consulting Provider: STEPHEN NYE Physician Instructions: Reason For Exam: Chest pain. Cardiac cath done by Dr. Nye in 2016 Primary care physician: HENNA MCCABE MD Hospitalization Reason for admission: cp Condition: Fair Hospital course: This is a 70-year-old female present to the hospital with past medical history of hypertension, COPD/asthma, anxiety, GERD, diabetes mellitus type 2 and hyperlipidemia with diagnosis of chest pain. Cardiology was consulted and recommended echocardiogram and stress test. The patient serial ECGs were negative, troponin levels negative x3. A previous cardiac catheterization 5 years ago demonstrated no significant coronary artery disease and a left ventricular ejection of 50 to 55%. Echocardiogram on this admission revealed a EF of 55%. Patient underwent stress testing which was found to be negative. Patient is felt to have received maximal hospital benefit and will be discharged home. Etiology of chest pain likely GERD. Dedicated discharge time 35 minutes. Disposition: DC-01 TO HOME OR SELFCARE Final Discharge Diagnosis (Prints w/discharge instructions): GERD, chest pain Core Measure Documentation - Palliative Care Palliative Care/ Comfort Measures: Not Applicable - Core Measures Any of the following diagnoses?: none Exam - Constitutional Vitals: Temp Pulse Resp BP Pulse Ox 97.5 F L 64 18 122/66 97 05/07/21 07:16 05/07/21 09:13 05/07/21 09:13 05/07/21 09:13 05/07/21 09:02 General appearance: Present: no acute distress, well-nourished - EENT Eyes: Present: PERRL ENT: hearing intact, clear oral mucosa - Neck Neck: Present: supple, normal ROM - Respiratory Respiratory effort: normal Respiratory: bilateral: CTA - Cardiovascular Heart Sounds: Present: S1 & S2. Absent: rub, click - Extremities Extremities: pulses symmetrical, No edema Peripheral Pulses: within normal limits - Abdominal General gastrointestinal: Present: soft, non-tender, non-distended, normal bowel sounds Female genitourinary: Present: normal - Integumentary Integumentary: Present: clear, warm, dry - Musculoskeletal Musculoskeletal: gait normal, strength equal bilaterally - Psychiatric Psychiatric: appropriate mood/affect, intact judgment & insight - Neurologic Neurologic: CNII-XII intact, moves all extremities Plan Activity: advance as tolerated Weight Bearing Status: Weight Bear as Tolerated Diet: diabetic Prescriptions: Aspirin EC [Ecotrin] 325 mg PO QDAY #30 tablet metFORMIN [Glucophage] 500 mg PO BID #60 glipiZIDE [Glucotrol] 10 mg PO DAILY #30 AtorvaSTATin [Lipitor] 40 mg PO QHS #30 tablet Pantoprazole [Protonix TAB] 40 mg PO BIDAC #60 tablet traMADoL [Ultram 50 MG tab] 50 mg PO Q6H PRN #10 tablet PRN Reason: Pain, Moderate (4-6)
--- NOTE | 2021-05-07 10:13 | Progress Note ---
Assessment and Plan - Patient Problems (1) Atypical chest pain Current Visit: Yes Status: Acute Plan to address problem: An echocardiogram showed ejection fraction 55%. No ischemia by Lexiscan thallium stress test this presentation. 2015 [facility] demonstrated no significant coronary artery disease and left ventricular ejection fraction 50 to 55%. No further cardiac workup indicated. Subjective Date of service: 05/07/21 Interval history: Patient is resting in bed comfortably. Denies chest pain. Planned for discharge home today. Objective Vital Signs Temp Pulse Pulse Pulse Resp BP BP 05/07/21 09:13 64 18 122/66 05/07/21 09:02 66 05/07/21 07:16 97.5 F L 76 19 88/62 05/07/21 04:46 94.8 F L 67 20 133/70 05/07/21 03:00 72 05/06/21 23:52 97.4 F L 72 20 121/69 05/06/21 20:30 67 67 18 05/06/21 19:33 97.7 F 67 20 115/59 05/06/21 19:00 71 05/06/21 16:32 97.7 F 83 18 113/62 05/06/21 12:17 98.8 F 82 18 124/71 05/06/21 11:00 67 05/06/21 10:28 126/71 05/06/21 10:27 135/75 05/06/21 10:26 113/66 05/06/21 10:25 135/69 05/06/21 10:24 117/70 Pulse Ox 05/07/21 09:13 05/07/21 09:02 97 05/07/21 07:16 97 05/07/21 04:46 97 05/07/21 03:00 05/06/21 23:52 93 05/06/21 20:30 100 05/06/21 19:33 100 05/06/21 19:00 05/06/21 16:32 96 05/06/21 12:17 99 05/06/21 11:00 05/06/21 10:28 05/06/21 10:27 05/06/21 10:26 05/06/21 10:25 05/06/21 10:24 - Physical Examination General: Appears Well, No Apparent Distress HEENT: Positive: PERRL Neck: Positive: trachea midline Cardiac: Positive: Reg Rate and Rhythm Lungs: Positive: Normal Breath Sounds Neuro: Positive: Grossly Intact Extremities: Absent: edema
--- NOTE | 2021-05-08 19:02 | Electrocardiograph Report ---
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
--- NOTE | 2021-05-08 19:06 | Electrocardiograph Report ---
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
--- NOTE | 2021-05-09 09:40 | Electrocardiograph Report ---
[facility] Test Date: 2021-05-04 Test Time: 19:20:52 Pat Name: JAMES ROSARIO Department: Room: A490 1 Gender: F Drama Teacher: ANN : 1950 Requested By: EDIS CLEVELAND Order Number: [id number] Reading MD: Simon Newby Measurements Intervals [place]jay Rate: 101 P: 50 AR: 150 QRS: -41 QRSD: 74 T: -6 QT: 385 QTc: 499 Interpretive Statements Sinus tachycardia Left anterior fascicular block Left ventricular hypertrophy Anterior Q waves, possibly due to LVH No previous ECG available for comparison Electronically Signed On 05-09-2021 9:40:00 EDT by Simon Newby
== END 2021-05-07 16:18 | disposition home or self-care (01) ==
LOC: ED 18:22 → 4A 05-05 00:51
PROVIDERS: ADMIT Hospitalist; ATTEND Hospitalist
DX: R07.89 Other chest pain (principal); L03.116 Cellulitis of left lower limb; E87.6 Hypokalemia; I10 Essential (primary) hypertension; E11.9 Type 2 diabetes mellitus without complications; E78.5 Hyperlipidemia, unspecified; J44.9 Chronic obstructive pulmonary disease, unspecified; K21.9 Gastro-esophageal reflux disease without esophagitis; F41.9 Anxiety disorder, unspecified; M19.90 Unspecified osteoarthritis, unspecified site; R41.0 Disorientation, unspecified; Z87.891 Personal history of nicotine dependence; Z79.899 Other long term (current) drug therapy; Z98.890 Other specified postprocedural states; Z79.82 Long term (current) use of aspirin; Z79.4 Long term (current) use of insulin
CPT/HCPCS: 36415; 71046; 73630; 78452; 80048; 80053; 80061; 82962; 83036; 84484; 84550; 85025; 87040; 87641; 93005; 93017; 93306; 96361; 96365; 96366; 96372; 96375; 96376; 99285; A9270; A9502; C9113; G0378; J0295; J1170; J1644; J2270; J2405; J2785; J7030; J1815

== ENCOUNTER 2022-04-02 22:37 | Emergency (ER) | payer MEDICARE ==
[2022-04-03] MEDS ORDERED: diphenhydrAMINE 25 MG CAP PO ONE (08:11)
[2022-04-03] MEDS ORDERED: FAMOTIDINE 20 MG TAB PO ONE (08:11)
--- NOTE | 2022-04-03 08:11 | Emergency Department Report ---
HPI - General Chief Complaint: Allergic Reaction PUI?: No Time Seen by Provider: 04/03/22 07:44 - HPI HPI: Ms. Gutierrez is a 71-year-old female she comes to the emergency room with a rash of her face trunk and upper extremities. She is not sure what she came into contact with. However, she was cleaning somebody's home. She has a friend that is dying and she is going into their home to clean. She thinks maybe she came into contact with something there. Those friends have no infestation of bugs, rash themselves or other concern for scabies/lice/bedbugs. Patient has no systemic symptoms No chest pain or shortness of breath No fever or chills No nausea vomiting diarrhea No sore throat cough or congestion ABCs are intact. Vital signs are stable. Patient is ambulatory to fast track with no shortness of breath. No hypoxia. No hypotension or tachycardia ED Past Medical Hx - Past Medical History Previous Medical History?: Yes Hx Hypertension: Yes Hx Congestive Heart Failure: No Hx Diabetes: Yes (DIET CONTROLLED) Hx GERD: Yes Hx Liver Disease: Yes (hemangioma of the liver) Hx Arthritis: Yes Hx Asthma: Yes Hx COPD: Yes Hx HIV: No Additional medical history: chronic back painHIGH CHOLESTEROL - Surgical History Past Surgical History?: Yes Additional Surgical History: right thumb surgery, RIGHT FOOT SURGERY - Social History Smoking Status: Never Smoker Substance Use Type: None - Medications Home Medications: Home Medications Medication Instructions Recorded Confirmed Last Taken Type Fluticasone Propionate [Flovent 2 inhalation INHALATION DAILY 06/06/14 05/05/21 11/24/15 History 110 MCG/PUFF HFA] Aspirin EC [Ecotrin] 325 mg PO DAILY 11/20/15 05/05/21 05/04/21 History Loratadine (Nf) [Claritin (Nf)] 10 mg PO DAILY 11/30/15 05/05/21 05/04/21 History Aspirin EC [Ecotrin] 325 mg PO QDAY #30 tablet 05/07/21 Unknown Rx AtorvaSTATin [Lipitor] 40 mg PO QHS #30 tablet 05/07/21 Unknown Rx Pantoprazole [Protonix TAB] 40 mg PO BIDAC #60 tablet 05/07/21 Unknown Rx glipiZIDE [Glucotrol] 10 mg PO DAILY #30 05/07/21 Unknown Rx metFORMIN [Glucophage] 500 mg PO BID #60 05/07/21 Unknown Rx traMADoL [Ultram 50 MG tab] 50 mg PO Q6H PRN #10 tablet 05/07/21 Unknown Rx Cetirizine HCl [ZyrTEC] 10 mg PO DAILY #30 capsule 04/03/22 Unknown Rx Famotidine [Pepcid] 20 mg PO DAILY #30 tablet 04/03/22 Unknown Rx diphenhydrAMINE [Benadryl CAP] 25 mg PO Q8HR PRN #20 capsule 04/03/22 Unknown Rx predniSONE [Deltasone] 20 mg PO DAILY #5 tablet 04/03/22 Unknown Rx ED Review of Systems ROS: Stated complaint: RASH Other details as noted in HPI Comment: All other systems reviewed and negative Physical Exam - Physical Exam Vital Signs: Vital Signs 04/03/22 00:02 Temperature 98.0 F Pulse Rate 65 Respiratory 18 Rate Blood Pressure 116/70 O2 Sat by Pulse 100 Oximetry General: Alert and oriented x4. Moves all extremities well. Rash, urticarial consistent with that of hives. No oral or conjunctival lesion ABCs intact Controlling secretions Normal vital signs S1-S2 Lungs clear to auscultation Abdomen soft nontender No CVA tenderness Uvula midline ED Course Vital Signs 04/03/22 00:02 Temperature 98.0 F Pulse Rate 65 Respiratory 18 Rate Blood Pressure 116/70 O2 Sat by Pulse 100 Oximetry ED Medical Decision Making - Medical Decision Making Vital Signs 04/03/22 04/03/22 00:02 09:02 Temperature 98.0 F Pulse Rate 65 68 Respiratory 18 16 Rate Blood Pressure 116/70 Blood Pressure 120/72 [Left] O2 Sat by Pulse 100 100 Oximetry Medicated in the ER with Decadron. Patient educated on the use of Pepcid, Benadryl and steroids for her rash. Have told her that we cannot tell her with certainty what is causing it but can treat it. I explained to her that most rashes are treated in a similar fashion. But she would need to see her primary care for referral to dermatology for definitive cause of the rash. Patient verbalizes understanding Patient discharged home with discharge plan of care including diet, activity, medications and follow-up. She verbalizes understanding of plan of care - Differential Diagnosis Rash suggestive of allergic response/hive Critical care attestation.: If time is entered above; I have spent that time in minutes in the direct care of this critically ill patient, excluding procedure time. ED Disposition Clinical Impression: Rash Disposition: 01 HOME / SELF CARE / HOMELESS Is pt being admited?: No Does the pt Need Aspirin: No Condition: Stable Instructions: Rash, Adult Additional Instructions: Medications as ordered today Follow-up with PCP if problem persist Referral below Diet and activity as tolerated Stay well-hydrated with water Prescriptions: diphenhydrAMINE [Benadryl CAP] 25 mg PO Q8HR PRN #20 capsule PRN Reason: Itching predniSONE [Deltasone] 20 mg PO DAILY #5 tablet Famotidine [Pepcid] 20 mg PO DAILY #30 tablet Cetirizine HCl [ZyrTEC] 10 mg PO DAILY #30 capsule Referrals: NEO BOOKER MD [Staff Physician] - 3-5 Days Forms: Work/School Release Form(ED) Time of Disposition: 08:50
[2022-04-03] MEDS ORDERED: predniSONE 20 MG TAB PO SCH (08:30)
[2022-04-03 09:03] VITALS: BP 120/72
== END 2022-04-03 09:03 | disposition home or self-care (01) ==
LOC: ED 22:37
DX: R21 Rash and other nonspecific skin eruption (principal); I10 Essential (primary) hypertension; J45.909 Unspecified asthma, uncomplicated; E11.9 Type 2 diabetes mellitus without complications
CPT/HCPCS: 99282